=== PATIENT | male | born 2000 | race Caucasian/White ===

== ENCOUNTER 2020-03-07 21:42 | Emergency (ER) | payer BC ==
--- NOTE | 2020-03-07 22:42 | EDM.PDOC ---
ED HPI GENERAL MEDICAL PROBLEM - General Chief Complaint: Chest Pain Stated Complaint: CHEST PAIN Time Seen by Provider: 03/07/20 21:52 - History of Present Illness INITIAL COMMENTS - FREE TEXT/NARRATIVE: History of present illness: [] Patient had a little bit of a headache 2 days ago yesterday he had chest pain after work. 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 He did not have any pain while he was working. When he got home he had chest pain and tingling in the left arm. He was able to use the arm fully. The [employer]. Today he had worse chest pain after work and after dinner tonight. It was worse he came in. The patient is on a nicotine patch for just stopping chewing. He never smoked. He is not diabetic he is not hypertensive. He is in good health. He is not stressed. He sleeps well. He works hard. His grandmother had a stroke but nobody else in the family have any cardiovascular disease or stroke. He is not using any drugs at this time. Review of systems: As per history of present illness and below otherwise all systems reviewed and negative. Past medical history: As per history of present illness and as reviewed below otherwise noncontributory. Surgical history: As per history of present illness and as reviewed below otherwise noncontributory. Social history: No reported history of drug or alcohol abuse. Family history: As per history of present illness and as reviewed below otherwise noncontributory. Physical exam: Constitutional - well developed, well-nourished and in no acute distress HEENT - normocephalic, no evidence of trauma - external nose and mouth normal - no mass in neck and no JVD - mucosae moist EYES - full EOM, PERRL, no icterus - no evidence of inflammation, injection, or drainage Respiratory - no respiratory distress, equal bilateral expansion, lungs clear to auscultation and no abnormal lung sounds Cardiovascular - Regular Rhythm with S1 and S2 appreciated and no murmur, gallop or rub. Peripheral pulses symmetrically normal in all four extremities GI - abdomen soft without distension or organomegaly - normal bowel sounds - no guard or rebound Musculoskeletal no gross deformity of long bones or joints - no tenderness, swelling or edema Neurologic - Alert and oriented times four - CN II-XII grossly intact - motor sensory and coordination symmetrically normal Psychiatric - appropriate mood and affect with normal thought content Hematologic - No petechiae or purpura - mucosa appropriate color and sclera not pale - normal nail bed color and refill Integument - no rash or evidence of trauma - normal turgor Diagnostics: [] EKG sinus rhythm with a heart rate of 89 and an axis of 80. There is borderline ST elevation in V4 and 5 and a slim young man who is likely showing early repolarization pattern. Therapeutics: [] Impression: [] Plan: [] Definitive disposition and diagnosis as appropriate pending reevaluation and review of above. chest Pain Score (Numeric/FACES): 8 - Related Data Allergies Allergy/AdvReac Type Severity Reaction Status Date / Time No Known Allergies Allergy Verified 03/07/20 21:59 Home Meds: Home Meds . [No Known Home Meds] 03/07/20 [History] Past Medical History Gastrointestinal History: Reports: None - Past Surgical History GI Surgical History: Reports: Appendectomy Social & Family History - Family History Family Medical History: Noncontributory - Tobacco Use Smoking Status *Q: Never Smoker Second Hand Smoke Exposure: No - Caffeine Use Caffeine Use: Reports: None - Recreational Drug Use Recreational Drug Use: No ED ROS GENERAL - Review of Systems Review Of Systems: Comprehensive ROS is negative, except as noted in HPI. Cardiovascular: Reports: Chest Pain Neurological: Reports: Paresthesia ED EXAM, GENERAL - Physical Exam Exam: See Below Free Text/Narrative:: Exam as in the HPI Course - Vital Signs Text/Narrative:: EKG was interpreted this early re-pole. There were ST elevations in V1 and V3 as well as the precordial leads. These were concave in the upright direction and he had no prior EKG. He was pain-free at the time I saw him. When the troponin came back at 4.6 we called my not and arrange for Dr. Mckeon the emergency physician to receive him. In consultation with Dr. Ross we decided to do the heparin protocol for acute STEMI. Patient will be transferred by air. Whether has her helicopter down and fixed wing transport is being arranged. The patient remains asymptomatic. Last Recorded V/S: Last Vital Signs Temp 97.8 F 03/07/20 21:45 Pulse 88 03/07/20 23:54 Resp 14 03/07/20 23:54 BP 148/79 H 03/07/20 23:54 Pulse Ox 97 03/07/20 23:54 - Orders/Labs/Meds Orders: Active Orders 24 hr Category Date Time Status EKG 12 Lead [EKG Documentation Completion] [RC] STAT Care 03/07/20 21:49 Active DRUG SCREEN, URINE [URCHEM] Stat Lab 03/07/20 23:57 Ordered Heparin Sod,Pork In 0.45% Nacl [Heparin-1/2Ns 25,000 Med 03/08/20 00:16 Ordered Units/500] 25,000 unit in 500 ml IV STAT Medication Orders Heparin Sodium/Sodium Chloride (Heparin-1/2ns 25,000 Units/500) 25,000 unit in 500 mls @ 20 mls/hr IV STAT STA Stop: 03/09/20 01:15 Labs: Laboratory Tests 03/07/20 03/07/20 03/07/20 Range/Units 21:50 21:50 21:50 WBC 6.93 (4.0-11.0) K/uL RBC 5.53 (4.50-5.90) M/uL Hgb 16.3 (13.0-17.0) g/dL Hct 47.0 (38.0-50.0) % MCV 85.0 (80.0-98.0) fL MCH 29.5 (27.0-32.0) pg MCHC 34.7 (31.0-37.0) g/dL RDW Std Deviation 38.3 (28.0-62.0) fl RDW Coeff of Clarissa 12 (11.0-15.0) % Plt Count 180 (150-400) K/uL MPV 9.80 (7.40-12.00) fL Neut % (Auto) 58.0 (48.0-80.0) % Lymph % (Auto) 23.1 (16.0-40.0) % Hale % (Auto) 18.2 H (0.0-15.0) % Eos % (Auto) 0.3 (0.0-7.0) % Baso % (Auto) 0.4 (0.0-1.5) % Neut # (Auto) 4.0 (1.4-5.7) K/uL Lymph # (Auto) 1.6 (0.6-2.4) K/uL Hale # (Auto) 1.3 H (0.0-0.8) K/uL Eos # (Auto) 0.0 (0.0-0.7) K/uL Baso # (Auto) 0.0 (0.0-0.1) K/uL Nucleated RBC % 0.0 /100WBC Nucleated RBCs # 0 K/uL Sodium 139 (136-148) mmol/L Potassium 3.9 (3.5-5.1) mmol/L Chloride 100 (98-107) mmol/L Carbon Dioxide 23.8 (21.0-32.0) mmol/L BUN 16 (7.0-18.0) mg/dL Creatinine 1.3 (0.8-1.3) mg/dL Est Cr Clr Drug Dosing 96.54 mL/min Estimated GFR (MDRD) > 60.0 ml/min Glucose 110 H (74-106) mg/dL Calcium 9.0 (8.5-10.1) mg/dL Total Bilirubin 1.6 H (0.2-1.0) mg/dL AST 35 (15-37) IU/L ALT 35 (14-63) IU/L Alkaline Phosphatase 59 (46-116) U/L Creatine Kinase 295 (26-308) U/L Troponin I 4.302 H* (0.000-0.056) ng/mL Total Protein 8.1 (6.4-8.2) g/dL Albumin 4.4 (3.4-5.0) g/dL Globulin 3.7 (2.6-4.0) g/dL Albumin/Globulin Ratio 1.2 (0.9-1.6) Meds: Medications Generic Name Dose Route Start Last Admin Trade Name Freq PRN Reason Stop Dose Admin Heparin Sodium/Sodium Chloride 25,000 unit in 500 mls @ 20 mls/hr 03/08/20 00:16 Heparin-1/2ns 25,000 Units/500 IV 03/09/20 01:15 STAT STA Discontinued Medications Generic Name Dose Route Start Last Admin Trade Name Freq PRN Reason Stop Dose Admin Aspirin 324 mg 03/08/20 00:00 03/08/20 00:06 Aspirin PO 03/08/20 00:01 324 mg ONETIME ONE Administration Heparin Sodium (Porcine) 4,000 units 03/08/20 00:16 Heparin Sodium IVPUSH 03/08/20 00:17 .BOLUS ONE Departure - Departure Time of Disposition: 01:00 Disposition: DC/Tfer to Acute Hospital 02 Condition: Good Clinical Impression: Acute myocardial infarction - Discharge Information Referrals: PCP,Not In Area [Primary Care Provider] - Forms: ED Department Discharge Sepsis Event Note (ED) - Evaluation Sepsis Screening Result: No Definite Risk - Focused Exam Vital Signs: Vital Signs Temp Pulse Resp BP Pulse Ox 03/07/20 23:54 88 14 148/79 H 97 03/07/20 21:45 97.8 F 123 H 18 141/87 H 98 - My Orders Last 24 Hours: My Active Orders 03/07/20 21:49 EKG 12 Lead [EKG Documentation Completion] [RC] STAT 03/07/20 23:57 DRUG SCREEN, URINE [URCHEM] Stat 03/08/20 00:16 Heparin Sod,Pork In 0.45% Nacl [Heparin-1/2Ns 25,000 Units/500] 25,000 unit in 500 ml IV STAT - Assessment/Plan Last 24 Hours: My Active Orders 03/07/20 21:49 EKG 12 Lead [EKG Documentation Completion] [RC] STAT 03/07/20 23:57 DRUG SCREEN, URINE [URCHEM] Stat 03/08/20 00:16 Heparin Sod,Pork In 0.45% Nacl [Heparin-1/2Ns 25,000 Units/500] 25,000 unit in 500 ml IV STAT
--- NOTE | 2020-03-07 23:43 | CR ---
Indication: Left upper chest pain Technique: Chest 2 views Comparison: None Findings/Impression: Cardiovascular and mediastinum: Heart size and vasculature are normal in caliber and appearance. Mediastinum is within normal limits. Lungs and pleural spaces: Lungs are clear. No sign of infiltrate or mass. No sign of pleural effusion. No pneumothorax. Bones and soft tissues: No significant findings. Dictated by Madhu Rosales MD @ Mar 07 2020 11:40PM Signed by Dr. Madhu Rosales @ Mar 07 2020 11:41PM
[2020-03-07 23:50] LABS: BLOOD UREA NITROGEN,BUN 16 mg/dL (7.0-18.0); CARBON DIOXIDE,CO2 23.8 mmol/L (21.0-32.0); CHLORIDE,CL 100 mmol/L (98-107); GLUCOSE RANDOM 110 mg/dL (74-106); POTASSIUM,K 3.9 mmol/L (3.5-5.1); SODIUM,NA 139 mmol/L (136-148)
[2020-03-08] MEDS ORDERED: Aspirin 81 MG Tab.Chew PO ONE
[2020-03-08] MEDS ORDERED: Heparin Sod,Pork In 0.45% Nacl 25,000 UNIT/500 ML IV.SOLN IV STA (00:16)
[2020-03-08] MEDS ORDERED: Heparin Sodium 5,000 Units/ML Vial IVPUSH ONE (00:16)
[2020-03-08] MEDS ORDERED: Heparin Sod,Pork In 0.45% Nacl 25,000 UNIT/500 ML IV.SOLN IV ONE (00:21)
[2020-03-08] MEDS ORDERED: Heparin Sodium 5,000 Units/ML Vial ONE (00:21)
== END 2020-03-08 00:51 ==
LOC: MW.ED 21:42
DX: I21.9 Acute myocardial infarction, unspecified (principal)
CPT/HCPCS: 36415; 71046; 80053; 82550; 84484; 85025; 93005; 96374; 99285; A9270; J1644; 99284